=== PATIENT | male | born 1960 | race Caucasian/White ===

== ENCOUNTER → 2016-09-24 | Outpatient (CLI) | payer OTHER | END | disposition home or self-care (01) | LOC: CFH 07:08 | PROVIDERS: ATTEND Family Medicine | DX: M25.511 Pain in right shoulder (principal); Z87.81 Personal history of (healed) traumatic fracture ==

== ENCOUNTER → 2017-04-05 | Outpatient (CLI) | payer OTHER | END | disposition home or self-care (01) | LOC: CFH 06:44 | PROVIDERS: ATTEND Family Medicine | DX: E05.20 Thyrotoxicosis with toxic multinodular goiter without thyrotoxic crisis or storm (principal) | CPT/HCPCS: 76536 ==

== ENCOUNTER → 2017-05-28 | Outpatient (CLI) | payer OTHER ==
[~2017-05-28] MED LIST: LIDOCAINE 1%, 10ML ONE
== END ==
LOC: RAD 08:01
PROVIDERS: ATTEND Surgery
DX: E04.1 Nontoxic single thyroid nodule (principal)
CPT/HCPCS: 76942; J3490

== ENCOUNTER → 2018-01-04 | Outpatient (CLI) | payer OTHER ==
[~2018-01-04] MED LIST changes: +ASPI-496 PO; +CHOL2000 PO; +GLUC500T11 PO; +LACT1CAP35 PO; -LIDOCAINE 1%, 10ML ONE; +MIDAZOLAM 1 MG/ML, 2ML ONE; +MULT-717 PO; +PROPOFOL 50 ML ONE; +ROSU10TA PO
== END | disposition home or self-care (01) ==
LOC: STAR 10:22
PROVIDERS: ATTEND Surgery
DX: Z01.818 Encounter for other preprocedural examination (principal); E07.9 Disorder of thyroid, unspecified; I45.10 Unspecified right bundle-branch block
CPT/HCPCS: 93005